=== PATIENT | male | born 1995 | race Caucasian/White ===

== ENCOUNTER 2018-05-01 16:43 | Inpatient (IN) | payer MEDICAID, OTHER ==
[~2018-05-01] VITALS: Ht 160 cm; Wt 109.6 kg
[2018-05-01] MEDS ORDERED: IBUPROFEN 600 MG TAB PO ONE (18:30)
--- NOTE | 2018-05-01 19:37 | ERD ---
ER Documentation Chief Complaint Chief Complaint RIGHT KNEE/LEG INJURY WHILE SNOWBOARDING 3 DAYS AGO HPI Patient is a 22-year-old male with no past medical history presents the ER for concerns of right knee/tibia pain times 3 days. Patient states that he was snowboarding when he ran into a tree. Patient states his anterior leg hit the tree. Patient states he is able to bear weight to the affected extremity however it is painful. Patient states he has difficulty with bending his knee. Patient does have some bruising to the anterior leg. Patient denies any head injury, neck pain, back pain. ROS All systems reviewed and are negative except as per history of present illness. Allergies Allergies: Coded Allergies: No Known Drug Allergy (Verified Allergy, Unknown, 05/04/13) PMhx/Soc Medical and Surgical Hx: pt denies Medical Hx History of Surgery: Yes (appendectomy) Hx Alcohol Use: No Hx Substance Use: No Hx Tobacco Use: No FmHx Family History: No diabetes Physical Exam Vitals Vital Signs Date Temp Pulse Resp B/P (MAP) Pulse Ox O2 O2 Flow FiO2 Time Delivery Rate 05/01/18 98.8 85 17 140/73 98 16:48 (95) Physical Exam GENERAL: Well-developed, well-nourished male. Appears in no acute distress. HEAD: Normocephalic, atraumatic. EYES: Pupils are equally reactive bilaterally. EOMs grossly intact. No conjunctival erythema. ENT: Moist mucous membranes. No uvula deviation. No kissing tonsils. NECK: Supple. No meningismus. Normal range of motion of the neck. LUNG: Clear to auscultation bilaterally. No rhonchi, wheezing, rales or coarse breath sounds. HEART: Regular rate and rhythm. No murmurs, rubs or gallops. EXTREMITIES: Equal pulses bilaterally. No peripheral clubbing, cyanosis or edema. No unilateral leg swelling. NEUROLOGIC: Alert and oriented. Moving all four extremities without any difficulty. Normal speech.. RLE: No obvious deformity. Superficial abrasions noted to upper tib-fib. Ecchymosis and mild swelling noted to the tibial tuberosity and upper tib/fib. Decreased range of motion secondary to pain. Neurovascularly intact. (Able to plantarflex, dorsiflex, milagros foot, invert foot, raise big toe.) 2+ DP and DT pulses. Result Diagram: 05/01/18195305/01/181953 Results 24 hrs Current Medications Medications Dose Sig/Gustavo Start Time Status Last (Trade) Ordered Route PRN Stop Time Admin Dose Reason Admin Ibuprofen 600 mg ONCE ONCE 05/01/18 DC 05/01/18 (Motrin) PO 18:30 18:32 05/01/18 18:31 Procedures/MDM ED COURSE: The patient was stable throughout ED course. I kept the patient and/or family informed of laboratory and diagnostic imaging results throughout the ED course. . DIAGNOSTIC IMAGING: Read by radiologist. Patient: JIHAN EVANGELISTA : 1995 Age: 22 Sex: M MR #: [id number] DOS: 05/01/181811 Ordering MD: RADHA ALAS PA-C Location: [facility] Room/Bed: PROCEDURE: X-ray right knee. CLINICAL INDICATION: Right knee pain. TECHNIQUE: AP, lateral and oblique views of the right knee. COMPARISON: None. FINDINGS: Fractures at the central tibial plateau, with depression of the posterior tibial eminence. Findings suggest an a nondisplaced possible avulsion fracture at the p osterior tibial eminence. Recommend CT examination of the right knee for further evaluation. There is a mild to moderate joint effusion. Remaining osseous structures are without acute fracture. IMPRESSION: 1. Fractures of the central tibial plateau, with depression of the posterior tibial eminence. 2. Otherwise, no evident acute fracture. RPTAT: [facility] Physician Jackie Date Time Electronically viewed and signed by Physician Jackie on 05/01/2018 19:25 RS/ CC: RADHA ALAS PA-C [id number] Patient: JIHAN EVANGELISTA : 1995 Age: 22 Sex: M MR #: [id number] DOS: 05/01/181811 Ordering MD: RADHA ALAS PA-C Location: [facility] Room/Bed: PROCEDURE: X-ray right leg. CLINICAL INDICATION: Right knee pain. TECHNIQUE: AP and lateral views of the right leg. COMPARISON: None. FINDINGS: Fractures at the central right tibial plateau. Recommend CT correlation. Otherwise, no evident acute fracture or dislocation in the right leg. Partially visualized right knee joint effusion. Otherwise, the soft tissues are unremarkable. IMPRESSION: 1. Fractures at the central right tibial plateau, and recommend CT correlation. 2. Otherwise, no evident acute fracture or dislocation in the remaining right leg. RPTAT: [facility] Physician Jackie Date Time Electronically viewed and signed by Physician Jackie on 05/01/2018 19:26 RS/ CC: RADHA ALAS PA-C [id number] PROCEDURES: SPLINT APPLICATION: The patient was verbally consented at bedside prior to splint application. Patient was explained the risks, benefits and alternatives to this procedure. The patient was neurovascularly intact prior to and status post application of the splint. The patient tolerated the procedure well with no complications. Splint type: Knee immobilizer Extremity: R tibia Indication: Fractures at the central right tibial plateau MEDICATIONS GIVEN: Ibuprofen Patient tolerated medication well with no adverse reactions. Patient reported improvement in pain. MEDICAL DECISION MAKING: This is a 22-year-old male with no past medical history presents the ER for concerns of right knee/tibia pain times 3 days. Patient states he injured his leg after he ran into a tree while snowboarding. Vital signs were reviewed. Patient was afebrile. X-ray imaging showed fractures at the central right tibial plateau. Patient was given ibuprofen 600 mg for his pain. Upon reexamination, patient denies any pain and states his pain is well controlled with this medication. Patient was placed in a knee immobilizer and advised to remain nonweightbearing to the affected extremity. Case was discussed with supervising physician Dr. Sutton, who advised me to call the on-call park services specialist Dr. Atkinson. Dr. Atkinson was paged and called on his cell phone numerous times by ER hospital secretary. Call back is pending at this time. Dr. Sutton will assist with admitting the patient. Preop blood work was obtained including CBC, CMP, PT PTT. Labs are pending at this time. Departure Diagnosis: Primary Impression: Tibial plateau fracture, right Encounter type: initial encounter Fracture type: closed Qualified Codes: S82.141A - Displaced bicondylar fracture of right tibia, initial encounter for closed fracture Condition: RADHA Mtz PA-C May 01, 2018 19:37
--- NOTE | 2018-05-01 22:29 | HP ---
Date/Time of Note Date/Time of Note DATE: 05/01/18 TIME: 22:29 Assessment/Plan VTE Prophylaxis Pharmacological prophylaxis: heparin Assessment/Plan Assessment/Plan 22-year-old male who crashed into a tree 4 days ago while snowboarding was found to have right tibia fracture PLAN Obtain CT for further evaluation Awaiting Ortho evaluation Pain management Result Diagram: 05/01/18195305/01/181953 Results 24hrs Laboratory Tests Test 05/01/18 19:54 White Blood Count 8.8 Red Blood Count 4.96 Hemoglobin 14.5 Hematocrit 43.5 Mean Corpuscular Volume 87.7 Mean Corpuscular Hemoglobin 29.2 Mean Corpuscular Hemoglobin Concent 33.3 Red Cell Distribution Width 12.0 Platelet Count 379 Mean Platelet Volume 10.0 Immature Granulocytes % 0.300 Neutrophils % 56.6 Lymphocytes % 33.4 Monocytes % 6.5 Eosinophils % 2.6 Basophils % 0.6 Nucleated Red Blood Cells % 0.0 Immature Granulocytes # 0.030 Neutrophils # 5.0 Lymphocytes # 2.9 Monocytes # 0.6 Eosinophils # 0.2 Basophils # 0.1 Nucleated Red Blood Cells # 0.0 Prothrombin Time 12.5 Prothrombin Time Ratio 1.0 INR International Normalized Ratio 0.92 Activated Partial Thromboplast Time 32.7 Sodium Level 142 Potassium Level 3.8 Chloride Level 102 Carbon Dioxide Level 28 Anion Gap 12 Blood Urea Nitrogen 12 Creatinine 0.89 Est Glomerular Filtrat Rate mL/min > 60 Glucose Level 93 Calcium Level 10.0 Total Bilirubin 0.5 Direct Bilirubin 0.00 Indirect Bilirubin 0.5 Aspartate Amino Transf (AST/SGOT) 46 Alanine Aminotransferase (ALT/SGPT) 70 H Alkaline Phosphatase 108 Total Protein 8.8 H Albumin 4.8 Globulin 4.00 H Albumin/Globulin Ratio 1.20 HPI/ROS Admit Date/Time Admit Date/Time May 01, 2018 at 19:47 Hx of Present Illness This is a 22-year-old male with no significant past medical history who presents the ER complaining of right leg pain, redness and swelling. He said 4 days ago, while snowboarding, he crashed into a tree injuring his right leg. For the past 4 days, he was able to walk and as such he did not think about seeking help at that time. When he noticed, redness, swelling and slightly increased pain, he decided to come to the ER for evaluation. X-ray shows Fractures at the central right tibial plateau. PMH/Family/Social Past Medical History Coded Allergies: No Known Drug Allergy (Verified Allergy, Unknown, 05/04/13) Social History Smoking Status: Never smoker Exam/Review of Systems Vital Signs Vitals Vital Signs Date Temp Pulse Resp B/P (MAP) Pulse Ox O2 O2 Flow FiO2 Time Delivery Rate 05/01/18 98.2 74 20 135/83 98 Room Air 21:54 (100) Exam Constitutional: alert, oriented, well developed Head: normocephalic, atraumatic Eyes: EOMI, PERRL Respiratory: clear to auscultation, normal air movement Cardiovascular: regular rate and rhythm, nl pulses Gastrointestinal: soft, non-tender Extremities: other (Right lower extremity erythema with some swelling of the right lloyd. There is also bruising with healing superficial wound) BOY BURROWS MD May 01, 2018 22:29
[2018-05-01] MEDS ORDERED: morphine 2 MG INJ IV PRN (22:30)
[2018-05-01] MEDS ORDERED: ACETAMINOPHEN 325 MG TAB PO PRN (22:30)
[2018-05-01] MEDS ORDERED: NACL 0.9% 3 ML SYG IV SCH (22:30)
[2018-05-01] MEDS ORDERED: HYDROCODONE/APAP (5/325) TAB PO PRN ×2 (22:30)
[2018-05-01] MEDS ORDERED: ONDANSETRON 4 MG INJ IV PRN (22:30)
[2018-05-01 23:23] VITALS: BP 132/76; PULSE 83; RESP 18
[2018-05-02 01:10] VITALS: Ht 160 cm; Wt 109.6 kg
[2018-05-02 02:37] VITALS: BP 127/77; PULSE 87; RESP 18
[2018-05-02 07:42] VITALS: BP 111/72; PULSE 74; RESP 18
[2018-05-02] MEDS: TRIMETHOPRIM/SULFAMETHOX (DS) TAB PO SCH ×2 (08:38→21:00)
[2018-05-02] MEDS: HEPARIN 5,000 UNIT/1 ML VIAL SC SCH ×2 (10:06→21:01)
[2018-05-02 14:00] VITALS: BP 115/65; PULSE 80; RESP 18
[2018-05-02] MEDS ORDERED: HYDROCODONE/APAP (10/325) TAB PO PRN (18:00)
--- NOTE | 2018-05-02 18:01 | PN ---
Date/Time of Note Date/Time of Note DATE: 05/02/18 TIME: 17:59 Assessment/Plan VTE Prophylaxis Risk score (from Ns)>0 risk: 3 SCD applied (from Ns): Yes SCD contraindicated: low risk/ambulating Pharmacological prophylaxis: heparin Lines/Catheters IV C[facility] Type (from [facility] Saline Lock Urinary Cath still in place: No Assessment/Plan Hospital Course Assessment and plan 1. Tibial plateau fracture? Mod stable consult Ortho. Low perioperative risk from medical standpoint, may proceed forward should it be indicated. 2. Status post fall snowboarding. Subjective: Mild discomfort no fever dyspnea. Objective: Vital signs stable Physical exam No pallor adenopathy Clear Regular no murmur gallop Benign Left leg braced Result Diagram: 05/02/184 05/02/18 0434 Results 24hrs Laboratory Tests Test 05/01/18 19:54 05/02/18 04:34 White Blood Count 8.8 7.8 Red Blood Count 4.96 4.65 L Hemoglobin 14.5 13.7 L Hematocrit 43.5 40.6 L Mean Corpuscular Volume 87.7 87.3 Mean Corpuscular Hemoglobin 29.2 29.5 Mean Corpuscular Hemoglobin Concent 33.3 33.7 Red Cell Distribution Width 12.0 12.1 Platelet Count 379 340 Mean Platelet Volume 10.0 10.1 Immature Granulocytes % 0.300 0.400 Neutrophils % 56.6 48.3 Lymphocytes % 33.4 39.2 Monocytes % 6.5 8.0 Eosinophils % 2.6 3.6 Basophils % 0.6 0.5 Nucleated Red Blood Cells % 0.0 0.0 Immature Granulocytes # 0.030 0.030 Neutrophils # 5.0 3.8 Lymphocytes # 2.9 3.0 H Monocytes # 0.6 0.6 Eosinophils # 0.2 0.3 Basophils # 0.1 0.0 Nucleated Red Blood Cells # 0.0 0.0 Prothrombin Time 12.5 Prothrombin Time Ratio 1.0 INR International Normalized Ratio 0.92 Activated Partial Thromboplast Time 32.7 Sodium Level 142 139 Potassium Level 3.8 3.4 L Chloride Level 102 101 Carbon Dioxide Level 28 29 Anion Gap 12 9 Blood Urea Nitrogen 12 15 Creatinine 0.89 0.85 Est Glomerular Filtrat Rate mL/min > 60 > 60 Glucose Level 93 108 Calcium Level 10.0 9.5 Total Bilirubin 0.5 0.5 Direct Bilirubin 0.00 0.00 Indirect Bilirubin 0.5 0.5 Aspartate Amino Transf (AST/SGOT) 46 37 Alanine Aminotransferase (ALT/SGPT) 70 H 63 Alkaline Phosphatase 108 78 Total Protein 8.8 H 7.5 # Albumin 4.8 4.2 Globulin 4.00 H 3.30 H Albumin/Globulin Ratio 1.20 1.27 Phosphorus Level 4.6 Magnesium Level 2.2 Exam/Review of Systems Exam Vitals Vital Signs Date Temp Pulse Resp B/P (MAP) Pulse Ox O2 O2 Flow FiO2 Time Delivery Rate 05/02/18 98.0 80 18 115/65 99 14:00 (82) 05/01/18 Room Air 21:54 Intake and Output 05/01/18 05/01/18 05/02/18 1515:00 23:00 07:00 IntakeIntake Total 480 ml 480 ml OutputOutput Total 600 ml BalanceBalance 480 ml -120 ml Results Results 24hrs Laboratory Tests Test 05/01/18 19:54 05/02/18 04:34 White Blood Count 8.8 7.8 Red Blood Count 4.96 4.65 L Hemoglobin 14.5 13.7 L Hematocrit 43.5 40.6 L Mean Corpuscular Volume 87.7 87.3 Mean Corpuscular Hemoglobin 29.2 29.5 Mean Corpuscular Hemoglobin Concent 33.3 33.7 Red Cell Distribution Width 12.0 12.1 Platelet Count 379 340 Mean Platelet Volume 10.0 10.1 Immature Granulocytes % 0.300 0.400 Neutrophils % 56.6 48.3 Lymphocytes % 33.4 39.2 Monocytes % 6.5 8.0 Eosinophils % 2.6 3.6 Basophils % 0.6 0.5 Nucleated Red Blood Cells % 0.0 0.0 Immature Granulocytes # 0.030 0.030 Neutrophils # 5.0 3.8 Lymphocytes # 2.9 3.0 H Monocytes # 0.6 0.6 Eosinophils # 0.2 0.3 Basophils # 0.1 0.0 Nucleated Red Blood Cells # 0.0 0.0 Prothrombin Time 12.5 Prothrombin Time Ratio 1.0 INR International Normalized Ratio 0.92 Activated Partial Thromboplast Time 32.7 Sodium Level 142 139 Potassium Level 3.8 3.4 L Chloride Level 102 101 Carbon Dioxide Level 28 29 Anion Gap 12 9 Blood Urea Nitrogen 12 15 Creatinine 0.89 0.85 Est Glomerular Filtrat Rate mL/min > 60 > 60 Glucose Level 93 108 Calcium Level 10.0 9.5 Total Bilirubin 0.5 0.5 Direct Bilirubin 0.00 0.00 Indirect Bilirubin 0.5 0.5 Aspartate Amino Transf (AST/SGOT) 46 37 Alanine Aminotransferase (ALT/SGPT) 70 H 63 Alkaline Phosphatase 108 78 Total Protein 8.8 H 7.5 # Albumin 4.8 4.2 Globulin 4.00 H 3.30 H Albumin/Globulin Ratio 1.20 1.27 Phosphorus Level 4.6 Magnesium Level 2.2 Medications Medication Current Medications IV Flush (NS 3 ml) 3 ml PER PROTOCOL IV Last administered on 05/02/18at 00:12; Admin Dose 3 ML; Start 05/01/18 at 22:30 Ondansetron HCl (Zofran Inj) 4 mg Q6H PRN IV NAUSEA/VOMITING; Start 05/01/18 at 22:30 Acetaminophen (Tylenol Tab) 650 mg Q6H PRN PO .PAIN 1-3 OR TEMP; Start 05/01/18 at 22:30 Acetaminophen/ Hydrocodone Bitart ([place] (5/325)) 1 tab Q6H PRN PO .MOD PAIN 4- 6 Last administered on 05/02/18at 08:38; Admin Dose 1 TAB; Start 05/01/18 at 22:30 Acetaminophen/ Hydrocodone Bitart ([place] (5/325)) 2 tab Q6H PRN PO .SEVERE PAIN 7-10; Start 05/01/18 at 22:30 Morphine Sulfate (morphine) 2 mg Q4H PRN IV .SEVERE PAIN 7-10; Start 05/01/18 at 22:30 Heparin Sodium (Porcine) (Heparin (5000 Units/1ml)) 5,000 unit Q12 SC Last administered on 05/02/18at 10:06; Admin Dose 5,000 UNIT; Start 05/02/18 at 09:00 Influenza Virus Vaccine Quadrival (Fluzone) 0.5 ml ONCE ONCE IM* ; Start 05/03/18 at 10:00; Stop 05/03/18 at 10:01 Trimethoprim/ Sulfamethoxazole (Bactrim (Ds)) 1 tab BID PO Last administered on 05/02/18at 08:38; Admin Dose 1 TAB; Start 05/02/18 at 09:00 DENIS ANDUJAR MD May 02, 2018 18:01
[2018-05-02 20:30] VITALS: BP 132/69; PULSE 82; RESP 20
[2018-05-03 02:18] VITALS: BP 133/68; PULSE 80; RESP 18
[2018-05-03 07:30] VITALS: BP 125/60; PULSE 66; RESP 18
[2018-05-03] MEDS: TRIMETHOPRIM/SULFAMETHOX (DS) TAB PO SCH ×2 (09:27→20:48)
[2018-05-03] MEDS: HEPARIN 5,000 UNIT/1 ML VIAL SC SCH ×2 (09:32→20:49)
[2018-05-03 14:23] VITALS: BP 126/83; PULSE 88; RESP 18
--- NOTE | 2018-05-03 19:22 | PN ---
Date/Time of Note Date/Time of Note DATE: 05/03/18 TIME: 19:21 Assessment/Plan VTE Prophylaxis Risk score (from Nsg)>0 risk: 2 SCD applied (from Nsg): Yes SCD contraindicated: low risk/ambulating Pharmacological prophylaxis: LMWH Lines/Catheters IV Catheter Type (from Nrsg): Saline Lock Urinary Cath still in place: No Assessment/Plan Hospital Course Assessment and plan 1. Ac comminuted/ displaced avulsion fracture of PCL tibial footprint. stable, consulted ortho. - Low perioperative risk from medical standpoint, may proceed forward should it be indicated. 2. Status post fall snowboarding.. May need outpatient PT and crutches on discharge. S: 05/02 mild discomfort no fever dyspnea. 05/03: No events. Ambulating with crutches Objective: Vital signs stable Physical exam No pallor Clear Regular no mrg Benign Left leg braced Result Diagram: 05/02/18 0434 05/02/18 0434 Exam/Review of Systems Exam Vitals Vital Signs Date Temp Pulse Resp B/P (MAP) Pulse Ox O2 O2 Flow FiO2 Time Delivery Rate 05/03/18 97.7 88 18 126/83 95 14:23 (97) 05/01/18 Room Air 21:54 Intake and Output 05/02/18 05/02/18 05/03/18 1515:00 23:00 07:00 IntakeIntake Total 640 ml 880 ml 780 ml OutputOutput Total 400 ml 300 ml BalanceBalance 640 ml 480 ml 480 ml Medications Medication Current Medications IV Flush (NS 3 ml) 3 ml PER PROTOCOL IV Last administered on 05/02/18at 00:12; Admin Dose 3 ML; Start 05/01/18 at 22:30 Ondansetron HCl (Zofran Inj) 4 mg Q6H PRN IV NAUSEA/VOMITING; Start 05/01/18 at 22:30 Acetaminophen (Tylenol Tab) 650 mg Q6H PRN PO .PAIN 1-3 OR TEMP; Start 05/01/18 at 22:30 Morphine Sulfate (morphine) 2 mg Q4H PRN IV .SEVERE PAIN 7-10; Start 05/01/18 at 22:30 Heparin Sodium (Porcine) (Heparin (5000 Units/1ml)) 5,000 unit Q12 SC Last administered on 05/03/18at 09:32; Admin Dose 5,000 UNIT; Start 05/02/18 at 09:00 Trimethoprim/ Sulfamethoxazole (Bactrim (Ds)) 1 tab BID PO Last administered on 05/03/18at 09:27; Admin Dose 1 TAB; Start 05/02/18 at 09:00 Acetaminophen/ Hydrocodone Bitart ([place] (10/325)) 1 tab Q4H PRN PO MODERATE PAIN LEVEL 4-6; Start 05/02/18 at 18:00 Influenza Virus Vaccine Quadrival (Fluzone) 0.5 ml ONCE ONCE IM* ; Start 05/05/18 at 11:30; Stop 05/05/18 at 11:31 DENIS ANDUJAR MD May 03, 2018 19:22
[2018-05-03 19:42] VITALS: BP 130/94; PULSE 94; RESP 16
--- NOTE | 2018-05-03 23:27 | CONS ---
DATE OF ADMISSION: 05/01/2018 DATE OF CONSULTATION: 05/01/2018 HISTORY OF PRESENT ILLNESS: The patient is a 22-year-old male without any significant past medical h istory who was admitted on 05/01/2018 when he came to the emergency room complaining of painful swell ing and limit of motion involving his right knee. According to the patient, he had sustained an inju ry to his right knee about 3 days prior to his admission when he ran into a tree while snowboarding. His right leg hit the tree causing possibly hyperextension injury to the knee. He was able to bear weight on his right lower extremity after the incident. However, it was becoming more painful. Ronnell es any other injuries. PHYSICAL EXAMINATION: GENERAL: My examination revealed a 22-year-old male who is not in any acute distress. EXTREMITIES: Right lower extremity is immobilized in a long leg posterior splint. The examination t hrough the splint revealed mild swelling with tenderness. Range of motion of the left right knee was not able to be tested because of the splint. There was no evidence of acute neurovascular compromis e involving the right lower extremity. DIAGNOSTIC STUDIES: X-rays of the right knee and a CT scan of the right knee revealed the presence o f fracture in the posteromedial aspect of the tibial plateau probably at the insertion of the posteri or cruciate ligament. DIAGNOSTIC IMPRESSION: Tibial plateau fracture involving the tibial insertion of the posterior cruci ate ligament. TREATMENT PLAN: Immobilization in a long leg brace with a dial lock at the knee joint for 6 to 8 wee ks followed by gradual mobilization. Recommended long leg brace has been ordered. He can be up and around with the long leg brace on, without any weightbearing. If he is comfortable with long leg bra ce and if he can be up and around with the brace on, then he can be discharged for further followup a s an outpatient. Dictated By: SHAVONNE VILLEGAS MD IK/NTS Conf#: [id number] DID#: [id number] CC: BOY BURROWS MD;*EndCC*
[2018-05-04 01:46] VITALS: BP 143/72; PULSE 70; RESP 18
[2018-05-04 08:29] VITALS: BP 107/65; PULSE 77; RESP 18
[2018-05-04] MEDS: TRIMETHOPRIM/SULFAMETHOX (DS) TAB PO SCH (09:10)
[2018-05-04] MEDS: HEPARIN 5,000 UNIT/1 ML VIAL SC SCH ×2 (09:10→21:43)
--- NOTE | 2018-05-04 10:24 | PN ---
Date/Time of Note Date/Time of Note DATE: 05/04/18 TIME: 10:23 Assessment/Plan VTE Prophylaxis Risk score (from Nsg)>0 risk: 2 SCD applied (from Nsg): Yes Pharmacological prophylaxis: heparin Lines/Catheters IV Catheter Type (from Nrsg): Saline Lock Urinary Cath still in place: No Assessment/Plan Hospital Course SUBJECTIVE: Right lower extremity pain well controlled. OBJECTIVE: Physical Exam General: Obese, 22 year-old male lying in bed in no apparent distress. HEENT: Normocephalic, atraumatic. Eyes: Anicteric sclerae, conjunctivae clear. ENT: Nasal septum midline, oral mucosa moist. Neck supple, no JVD noticed. Respiratory: Bilaterally clear breath sounds. No use of accessory muscles of respiration. No adventitious breath sounds. Cardiovascular: S1, S2 heard. No murmurs or gallops. Abdomen: Soft, nontender, and nondistended. Bowel sounds positive in all 4 quadrants. Genitourinary: Deferred. Extremities: No cyanosis, no clubbing, no edema. Peripheral pulses palpable. Right lower extremity brace in place. Neurologic: Cranial nerves II through XII grossly intact. The patient is awake, alert, and oriented. Skin: Normal skin turgor. No skin rashes. Labs & Vitals per chart ASSESSMENT & PLAN 22-year-old male with no significant past medical history who underwent a snowboarding accident and came to the emergency room with a chief complaint of right lower extremity pain with imaging showing comminuted and mildly displaced avulsion fracture involving the PCL tibial footprint, who was admitted to inpatient setting for further treatment and evaluation. 1. Right tibial plateau fracture. -Continue pain control. -Nonweightbearing on the right lower extremity -Orthopedic surgery recommended immobilization and long brace. 2. Morbid obesity. -BMI more than 42 kg/m. -Weight reduction advised. 3. Fluids, electrolytes, and nutrition. -Regular diet. 4. DVT prophylaxis. -Subcutaneous heparin. 5. Plan. -Physical therapy evaluation. -Continue pain control. The patient was seen in collaboration with Dr. Barrera. Result Diagram: 05/02/18 0434 05/02/18 0434 Exam/Review of Systems Exam Vitals Vital Signs Date Temp Pulse Resp B/P (MAP) Pulse Ox O2 O2 Flow FiO2 Time Delivery Rate 05/04/18 97.8 77 18 107/65 100 Room Air 08:29 (79) Intake and Output 05/03/18 05/03/18 05/04/18 1515:00 23:00 07:00 IntakeIntake Total 800 ml BalanceBalance 800 ml Medications Medication Current Medications IV Flush (NS 3 ml) 3 ml PER PROTOCOL IV Last administered on 05/02/18at 00:12; Admin Dose 3 ML; Start 05/01/18 at 22:30 Ondansetron HCl (Zofran Inj) 4 mg Q6H PRN IV NAUSEA/VOMITING; Start 05/01/18 at 22:30 Acetaminophen (Tylenol Tab) 650 mg Q6H PRN PO .PAIN 1-3 OR TEMP; Start 05/01/18 at 22:30 Morphine Sulfate (morphine) 2 mg Q4H PRN IV .SEVERE PAIN 7-10; Start 05/01/18 at 22:30 Heparin Sodium (Porcine) (Heparin (5000 Units/1ml)) 5,000 unit Q12 SC Last administered on 05/04/18at 09:10; Admin Dose 5,000 UNIT; Start 05/02/18 at 09:00 Trimethoprim/ Sulfamethoxazole (Bactrim (Ds)) 1 tab BID PO Last administered on 05/04/18at 09:10; Admin Dose 1 TAB; Start 05/02/18 at 09:00 Acetaminophen/ Hydrocodone Bitart ([place] (10/325)) 1 tab Q4H PRN PO MODERATE PAIN LEVEL 4-6; Start 05/02/18 at 18:00 Influenza Virus Vaccine Quadrival (Fluzone) 0.5 ml ONCE ONCE IM* ; Start 05/05/18 at 11:30; Stop 05/05/18 at 11:31 NOE YAN NP May 04, 2018 10:24
[2018-05-04 15:09] VITALS: BP 115/57; PULSE 92; RESP 18
[2018-05-04 19:11] VITALS: BP 126/67; PULSE 86; RESP 16
[2018-05-05 01:32] VITALS: BP 117/65; PULSE 60; RESP 16
[2018-05-05 07:42] VITALS: BP 102/63; PULSE 72; RESP 18
[2018-05-05] MEDS: HEPARIN 5,000 UNIT/1 ML VIAL SC SCH (09:00)
--- NOTE | 2018-05-05 10:37 | PDOCDIS ---
Discharge Instructions CONDITION [id number] Patient Condition: [id number] Stable HOME CARE INSTRUCTIONS: [id number] Diet Instructions: [id number] Regular ACTIVITY: [id number] Activity Restrictions: [id number] No Weight Bearing (On right lower extremity) FOLLOW UP/APPOINTMENTS Follow-up Plan Josef Atkinson MD Specialty: Orthopedic Surgery Office Address [address] [place], [place] [id number] Office OTHER ORDERS: Other Orders: 1. Take poyj-hlz-dioofwe pain medications as needed. 2. No weightbearing on the right lower extremity until cleared by orthopedic surgery. 3. Please follow-up with orthopedic surgery in 2 weeks. Please call for appointment. 4. Please call your orthopedic surgeon or go to nearest emergency room if you have any new onset obvious deformities of the right lower extremity, increased swelling, loss of sensation, or any other unusual signs/symptoms. NOE YAN NP May 05, 2018 10:37
--- NOTE | 2018-05-05 10:49 | DS ---
Date/Time of Note Date/Time of Note DATE: 05/05/18 TIME: 10:47 Discharge Summary Admission/Discharge Info Admit Date/Time May 01, 2018 at 19:47 Discharge Date/Time Discharge Diagnosis 1. Right tibial plateau fracture. 2. Morbid obesity. BMI more than 42 kg/m. Patient Condition: Stable Consults 1. Cesar Atkinson MD, Orthopedic Surgery. Procedures Right Lower Extremity CT IMPRESSION: 1. Acute slightly comminuted and mildly displaced avulsion fracture involving the PCL tibial footprint. Hx of Present Illness This is a 22-year-old male with no significant past medical history who underwent a snowboarding accident and came to the emergency room with a chief complaint of right lower extremity pain with imaging showing comminuted and mildly displaced avulsion fracture involving the PCL tibial footprint, who was admitted to inpatient setting for further treatment and evaluation. Hospital Course The patient was admitted to inpatient setting. He was provided with adequate pain control. The patient was maintained on bedrest. An orthopedic surgery consult was obtained. Orthopedic surgeon saw and evaluated the patient who recommended treatment with immobilization and long leg brace with a dial at the knee joint for 6-8 weeks followed by gradual mobilization and no weightbearing on the right lower extremity. Long leg brace was ordered and was put on. The patient was evaluated by physical therapy and the patient was instructed and trained on crutch walking without weightbearing on the right lower extremity. The patient was cleared by orthopedic surgery to be discharged home, to be followed up with outpatient orthopedic surgery. The patient has no other significant chronic problems other than obesity. The patient was noticed to have a BMI of more than 42 kg/m. The patient was advised on weight reduction. The patient had a stable hospital course. The patient was cleared by orthopedic surgery to be discharged home. Discharge Instructions 1. Take [id number] pain medications as needed. 2. No weightbearing on the right lower extremity until cleared by orthopedic surgery. 3. Please follow-up with orthopedic surgery in 2 weeks. Please call for appointment. 4. Please call your orthopedic surgeon or go to nearest emergency room if you have any new onset obvious deformities of the right lower extremity, increased swelling, loss of sensation, or any other unusual signs/symptoms. The patient verbalized understanding of his discharge instructions. At this time I would like to thank Dr. Atkinson for seeing the patient and providing clinical recommendations. The patient was seen in collaboration with Dr. Barrera. Home Meds No Active Prescriptions or Reported Meds Follow-up Plan Josef Atkinson MD Specialty: Orthopedic Surgery Office Address [id number] [place] [address] Office Primary Care Provider Not On Staff Doctor Time spent on discharge: > 30 minutes NOE YAN NP May 05, 2018 10:49
== END 2018-05-05 13:30 | disposition home or self-care (01) | DRG 563 ==
LOC: FTE 16:43 → MS1 19:47
PROVIDERS: ADMIT Internal Medicine; ATTEND Internal Medicine
PROC: 2W3QX3Z Immobilization of Right Lower Leg using Brace (ICD-10-PCS; principal; 2018-05-01)
DX: S82.141A Displaced bicondylar fracture of right tibia, initial encounter for closed fracture (principal); Z68.41 Body mass index [BMI] 40.0-44.9, adult; E66.01 Morbid (severe) obesity due to excess calories; W18.09XA Striking against other object with subsequent fall, initial encounter; Y93.23 Activity, snow (alpine) (downhill) skiing, snowboarding, sledding, tobogganing and snow tubing; Y92.838 Other recreation area as the place of occurrence of the external cause; Y99.8 Other external cause status
CPT/HCPCS: 73562; 73590; 73700; 80053; 83735; 84100; 85025; 85610; 85730; 90686; 97116; 97161; J1644; L1832